=== PATIENT | female | born 1970 | race Caucasian/White ===

== ENCOUNTER 2019-08-05 10:32 | Emergency (ER) | payer BC ==
--- NOTE | 2019-08-05 11:04 | RAD ---
XR Chest 1 View Portable History: Chest pain Comparison: Radiograph November 02, 2015 Findings: Surgical clips project over the right and left hemithoraces. No pneumothorax. No effusion. No confluent airspace consolidation. No acute osseous abnormality. Impression: No acute intrathoracic abnormality.
[2019-08-05 11:18] LABS: ALT (SGPT) 13 U/L (8-55); AST (SGOT) 17 U/L (5-34); Albumin 4.4 g/dL (3.5-5.0); Alkaline Phosphatase 119 U/L (40-110); Anion Gap 12 mmol/L (10-20); BUN (Urea Nitrogen) 14 mg/dL (7.0-18.7); Bilirubin, Total 0.6 mg/dL (0.2-1.2); Calc. Creatinine Clearance 0 mL/min (70-130); Calcium 9.1 mg/dL (7.8-10.44); Carbon Dioxide 28 mmol/L (22-29); Chloride 103 mmol/L (98-107); Estimated GFR-MDRD 62; Globulin 2.8 g/dL (2.4-3.5); Glucose 91 mg/dL (70-105); Potassium 4.7 mmol/L (3.5-5.1); Protein, Total 7.2 g/dL (6.0-8.3); Sodium 138 mmol/L (136-145)
[2019-08-05 11:24] LABS: Mean Corpuscular HGB CONC 31.7 g/dL (32.0-36.0); Mean Corpuscular Hemoglobin 28.4 pg (27.0-31.0); Mean Corpuscular Volume 89.6 fL (78.0-98.0); Mean Platelet Volume 7.4 fL (7.4-10.4); Platelet Count 352 thou/uL (130-400); RBC Distribution Width 12.8 % (11.5-14.5); Red Blood Cell (RBC) Count 4.92 mill/uL (4.20-5.40); Reflex for Review?? YES
[2019-08-05 11:25] LABS: Lymphocytes 96 % (21-51); MDiff Complete? YES; Monocytes 1 % (0-10); Neutrophil 3 % (42-75)
== END 2019-08-05 13:35 | disposition home or self-care (01) ==
LOC: ERS 10:32
DX: R53.83 Other fatigue (principal); J45.909 Unspecified asthma, uncomplicated; R07.9 Chest pain, unspecified; Z79.899 Other long term (current) drug therapy; Z85.3 Personal history of malignant neoplasm of breast
CPT/HCPCS: 71045; 80053; 84484; 85025; 85060; 85379; 93005

== ENCOUNTER 2022-02-19 18:00 | Outpatient (CLI) | payer BC | END 2022-02-19 18:01 | disposition home or self-care (01) | LOC: SLEEPLAB 18:00 | PROVIDERS: ATTEND Family Medicine | DX: G47.33 Obstructive sleep apnea (adult) (pediatric) (principal); R53.83 Other fatigue; K21.9 Gastro-esophageal reflux disease without esophagitis; R06.83 Snoring; F32.9 Major depressive disorder, single episode, unspecified; G47.00 Insomnia, unspecified; G47.10 Hypersomnia, unspecified | CPT/HCPCS: 95800 ==

== ENCOUNTER 2022-04-03 19:30 | Outpatient (CLI) | payer BC | END 2022-04-03 19:31 | disposition home or self-care (01) | LOC: SLEEPLAB 19:30 | PROVIDERS: ATTEND Family Medicine | DX: G47.33 Obstructive sleep apnea (adult) (pediatric) (principal); R53.83 Other fatigue; R06.83 Snoring; R09.89 Other specified symptoms and signs involving the circulatory and respiratory systems; K21.9 Gastro-esophageal reflux disease without esophagitis; G47.10 Hypersomnia, unspecified; G47.00 Insomnia, unspecified; I10 Essential (primary) hypertension | CPT/HCPCS: 95810 ==

== ENCOUNTER 2023-12-01 08:15 | Outpatient (CLI) | payer BC ==
[2023-12-01] MEDS ORDERED: Barium Sulfate 96% 176 GM BOT (xray ONLY) ONE (08:36)
[2023-12-01] MEDS ORDERED: E-Z-HD 98% W/W 340GM BOT (x-ray ONLY) ONE (08:36)
== END 2023-12-01 08:16 | disposition home or self-care (01) ==
LOC: RAD 08:15
PROVIDERS: ATTEND Physician Assistant Medical
DX: K21.9 Gastro-esophageal reflux disease without esophagitis (principal); K59.09 Other constipation; M81.0 Age-related osteoporosis without current pathological fracture
CPT/HCPCS: 74220